=== PATIENT | female | born 1985 | race African-American/Black ===

== ENCOUNTER 2019-11-10 04:32 | Emergency (ER) | payer SELFPAY ==
[~2019-11-10] VITALS: Ht 170.2 cm; Wt 90.9 kg
[2019-11-10 04:36] VITALS: TEMP 98.1
[2019-11-10] MEDS ORDERED: CLEOCIN HCL300 MG PO (05:36)
[2019-11-10] MEDS ORDERED: NORCO 325 MG-51 TAB PO (05:37)
[2019-11-10 06:58] VITALS: BP 125/93; PULSE 93
== END 2019-11-10 07:02 | disposition home or self-care (01) ==
LOC: COL.ER 04:32
DX: L02.214 Cutaneous abscess of groin (principal); K08.89 Other specified disorders of teeth and supporting structures; F17.210 Nicotine dependence, cigarettes, uncomplicated; Z98.51 Tubal ligation status
CPT/HCPCS: J1885

== ENCOUNTER 2020-08-19 14:14 | Emergency (ER) | payer SELFPAY ==
[~2020-08-19] VITALS: Ht 170.2 cm; Wt 90.9 kg
[~2020-08-19 14:14] MED LIST: CLEOCIN HCL300 MG PO; NORCO 325 MG-51 TAB PO
[2020-08-19 14:33] VITALS: BP 152/95; TEMP 98.4
[2020-08-19] MEDS ORDERED: AMOXICILLIN875 MG PO (16:27)
[2020-08-19 16:51] VITALS: PULSE 102
== END 2020-08-19 16:51 | disposition home or self-care (01) ==
LOC: COL.ER 14:14
DX: J06.9 Acute upper respiratory infection, unspecified (principal); J32.9 Chronic sinusitis, unspecified; F17.210 Nicotine dependence, cigarettes, uncomplicated; Z20.822 Contact with and (suspected) exposure to COVID-19
CPT/HCPCS: J1885; J2765